=== PATIENT | female | born 2000 | race Caucasian/White ===

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

== ENCOUNTER 2020-07-21 02:46 | Outpatient (CLI) | payer BC, SELFPAY ==
[2020-07-22 12:27] LABS: COVID-19 RT-PCR UVMMC Result Negative (Negative)
== END 2020-07-21 02:47 | disposition home or self-care (01) ==
PROVIDERS: PCP Pediatrics; Visit Provider Pediatrics
DX: Z20.822 Contact with and (suspected) exposure to COVID-19 (principal); R50.9 Fever, unspecified
CPT/HCPCS: U0003

== ENCOUNTER 2020-09-22 22:57 | Emergency (ER) | payer BC, SELFPAY ==
[2020-09-22 23:04] VITALS: BP 134/90; PULSE 104; RESP 14; TEMP 37.2; O2SAT 97
[2020-09-22 23:15] VITALS: RESP 16
--- NOTE | 2020-09-22 23:27 | W.ED.GENAD ---
Discharge Plan Disposition Patient Disposition: HOME Condition: Good Discharge Details Clinical Impression: Encounter for medical assessment, Dehydration, Disturbance of sleep Primary Care Provider: Jan Hua ED Provider: Jan Chapa Discharge Instructions Instructions: Melatonin (By mouth), Dehydration (ED) Additional Instructions: At this time your exam is reassuring and there is no current evidence of an acute life-threatening process. I do suspect that you have mild dehydration, please drink 10 to 12 cups of water per day. Your sleep schedule may be a component of your symptoms, or it may be unrelated. As we discussed together we will provide you with the single tablet of Ativan to use to help sleep when you feel it is most appropriate. Please do not take this with any alcohol. Please take 5 mg of melatonin every night to help modulate your sleep schedule. If you notice any worsening of your symptoms, or any new symptoms such as vomiting, diarrhea, fever, chills, shortness of breath, chest pain, numbness, weakness, or fainting , please return immediately to the emergency department for reevaluation. Please follow up with your primary care provider as soon as possible for reassessment and reevaluation. As always, it was a pleasure participating in your medical care today. Referrals: Jan Hua MD [Primary Care Provider] - Medical Decision Making This is a 20-year-old female with no significant past medical history who presents today for medical evaluation. Patient states that about an hour ago she had an atypical sensation of a popping sensation in her right neck that happen once, shortly thereafter was followed by a feeling of warm flushing, and then about 20 to 30 minutes later mild tingling in the back of her scalp. No syncope. No chest pain or shortness of breath. No pain. No headache or significant vision changes. She denies vomiting or diarrhea. She states that the symptoms of happened before about 2 months ago. She denies any other complaints. No IV or illicit drug use, no alcohol use. She denies any new medications. She does not state any additional complaints. Her father who did bring her in did asked to speak with me personally, we talked on the phone and he adds to the conversation that he feels that the patient sleep schedule has been off and she goes to bed at 3 AM and gets up much later in the day and he feels that this is a large major contributor to her symptoms. No other complaints at this time. Father also felt that a few days of a sleeping aid or a sedative would be helpful for the next 2 to 3 days to help get her back onto a normal routine. Physical exam is notably unremarkable. She has some dry mucous membranes, very mild almost imperceptible left horizontal fatigable nystagmus. No other neurologic deficits, no nerve neuro abnormalities. No evidence of stroke, cerebellar infarct, MS clinically, or other significant abnormality. The initial symptoms that she had are inconsistent with stroke, or significant neurovascular compromise. She had no syncope. Uncertain as to the exact etiology but I suspect mild dehydration certainly component of it. No current evidence of acute life-threatening etiology at this time. I did discuss the patient father's recommendations with the patient herself, she feels that this would be reasonable. We will give a 0.5 mg Ativan for home use x1, as well as recommend continued melatonin use and a good sleep cycle and with hydration in general. Discussed red flags which to return. I have extensively reviewed the treatment plan and discharge instructions with the patient and their family. I have addressed all patient concerns at this time. The patient and family was made aware of what symptoms to monitor for that would warrant a return to the emergency department. Discussed the plan with the patient and family, they demonstrate verbal understanding and agreement with our assessment and plan at this time. The documentation in this chart was dictated using [employer] dictation software. Please excuse any dictation errors. HPI General Date/Time Provider Initiated Documentation: 09/22/20 23:06. HPI Narrative: This is a 20-year-old female with no significant past medical history who presents today for medical evaluation. Patient states that about an hour ago she had an atypical sensation of a popping sensation in her right neck that happen once, shortly thereafter was followed by a feeling of warm flushing, and then about 20 to 30 minutes later mild tingling in the back of her scalp. No syncope. No chest pain or shortness of breath. No pain. No headache or significant vision changes. She denies vomiting or diarrhea. She states that the symptoms of happened before about 2 months ago. She denies any other complaints. No IV or illicit drug use, no alcohol use. She denies any new medications. She does not state any additional complaints. Her father who did bring her in did asked to speak with me personally, we talked on the phone and he adds to the conversation that he feels that the patient sleep schedule has been off and she goes to bed at 3 AM and gets up much later in the day and he feels that this is a large major contributor to her symptoms. No other complaints at this time. Related Data Allergies Allergy/AdvReac Type Severity Reaction Status Date / Time No Known Drug Allergies Allergy Verified 08/07/20 13:50 tree and shrub pollen AdvReac Verified 08/07/20 13:50 General Stated Complaint: GenMedical NAOMI: 3 Review of Systems All systems reviewed & are unremarkable except as noted in HPI and below PFSH Medical History History of varicella as a child Per records- reported as 03/2009 Muscle tightness Short stature Family History Mother Mental disorder DEPRESSION/ANXIETY Father Essential hypertension Diverticulitis Grandparent Alcohol abuse MGF Essential hypertension MGM Alzheimer disease PGF Hyperlipidemia Other Alcohol abuse Maternal uncle Mental disorder Cousin - bipolar Neoplasm Maternal aunt pituitary tumor Brother Autism Mental disorder DEPRESSION/ANXIETY Other Substance abuse Social History Smoking/Tobacco Use Status: Never Smoking risk assessment performed?: Yes Alcohol Intake: current Alcohol Intake frequency: other Substance use type: marijuana Counseling given: Yes Details: smokes pot to help with sleep at night sometimes Education Level: college Sexually active: Yes What type of physical activity do you participate in: walking Do you feel safe at home: Yes Do you feel safe in your relationship?: Yes Female Reproductive History Menstrual Age of Menarche: 10 Duration of menses: other (LMP- 11/03/18) control method: condoms Exam Narrative Exam Narrative: 1.Const: Well-nourished, Well-developed, appearing stated age 2.Eyes: PERRL, no conjunctival injection, and symmetrical lids. 3.ENT: Atraumatic external nose and ears. Notably dry MM. Neck: Symmetric, trachea midline, No thyromegaly. No erythema in the ear canals, no fluid behind the tympanic membranes. Patient demonstrates good movement of cervical neck. There is no nuchal rigidity, no nuchal tenderness. Patient is able to flex the neck without any difficulty or significant pain. Negative Kernig's and Brudzinski sign. 4.CVS: +S1/S2, No murmurs or gallops. Peripheral pulses 2+ and equal in all extremities. Brisk capillary refill in all extremities. No carotid bruits. No vertebral bruits. 5.RESP: Unlabored respiratory effort. Clear to auscultation bilaterally. No wheezes rales or rhonchi 6.GI: Soft, Nontender/Nondistended, No hepatosplenomegaly. No guarding or rebound. 7.MSK: Normocephalic/Atraumatic, Extremities w/o deformity or ttp No cyanosis or clubbing, Normal movement of all extremities 8.Skin: Warm, Dry. No rashes or lesions. 9.Neuro: restaurant mgr II-XII grossly intact. Sensation grossly intact, no focal neurologic deficits. All 6 cardinal planes of vision are fully intact. No evidence of rotatory or vertical nystagmus. Minimal unidirectional left-sided fatigable horizontal nystagmus. The patient demonstrated a normal qmhyrn-bbvc-ylzwhv, good dexterity. There was no evidence of dysdiadochokinesia. Patient was able to ambulate without difficulty. There was no wide-based gait. Romberg testing was normal. Jghl-gi-xngp testing was normal. Sensation was intact bilaterally as well as muscle strength bilaterally for all extremities. Patient was able to verbalize butter cup with no slurring, or miss pronunciation. 10.Psych: (AAO) x3. Appropriate mood and affect Course Vital Signs Vital signs: Vital Signs Temperature 37.2 C 09/22/20 23:04 Pulse 104 H 09/22/20 23:04 Respiratory Rate 14 09/22/20 23:04 Blood Pressure 134/90 09/22/20 23:04 Pulse Oximetry 97 09/22/20 23:04 Temperature 37.2 C 09/22/20 23:04 Temperature Source Skin 09/22/20 23:04 Pulse 104 H 09/22/20 23:04 Respiratory Rate 16 09/22/20 23:15 Respiratory Effort Non-Labored 09/22/20 23:15 Respiratory Depth Normal 09/22/20 23:15 Respiratory Pattern Normal 09/22/20 23:15 Blood Pressure 134/90 09/22/20 23:04 Blood Pressure Position Sitting 09/22/20 23:04 Pulse Oximetry 97 09/22/20 23:04 Oxygen Delivery Method Room Air 09/22/20 23:04 Oxygen Flow Rate 0 09/22/20 23:04 Pain Level 0 09/22/20 23:04
[2020-09-22] MEDS: LORazepam 0.5 MG TAB PO (23:48)
== END 2020-09-22 23:55 | disposition home or self-care (01) ==
PROVIDERS: Emergency Provider Student in an Organized Health Care Education/Training Program; PCP Pediatrics
DX: E86.0 Dehydration (principal); G47.29 Other circadian rhythm sleep disorder
CPT/HCPCS: 99283

== ENCOUNTER 2020-09-25 12:45 | Outpatient (CLI) | payer BC, SELFPAY | END 2020-09-25 12:46 | disposition home or self-care (01) | LOC: LBO 12:45 | PROVIDERS: PCP Pediatrics | DX: F41.9 Anxiety disorder, unspecified (principal) | CPT/HCPCS: 36415; 80053; 82728; 84443; 85025 ==

== ENCOUNTER 2020-11-02 13:18 | Outpatient (REF) | payer BC, SELFPAY ==
--- NOTE | 2020-11-02 11:30 | PAPFT_PTH ---
PATIENT: Staci Denton LOC: [facility] U#:[id number] AGE/SX: 20/F ROOM: RE11/02/[address]: Tiffanie Burns NP : 2000 BED: DIS: 11/02/2020 SPEC #: [id number] RECD: 11/02/20 17:54 STATUS: EDIS REFavian #: [id number] ANSELMO: 11/02/20 11:[address]: Tiffanie Burns NP DEPT: [facility] Cytology RECD BY: Lovely Mena ENTERED: 11/02/20 17:55 SP TYPE: PAPFT OTHR DR: Jan Hua MD Tissues: 1 - CX/ENDOCX FOR PAP SMEARS Procedures: PAP THIN PREP/[facility] Screening Comments: [id number]
== END 2020-11-02 13:19 | disposition home or self-care (01) ==
LOC: LBN 13:18
PROVIDERS: PCP Pediatrics; Visit Provider Nurse Practitioner Women's Health
DX: Z12.4 Encounter for screening for malignant neoplasm of cervix (principal)
CPT/HCPCS: 88142

== ENCOUNTER 2021-12-21 18:42 | Outpatient (REF) | payer BC, SELFPAY ==
[2021-12-23 21:28] LABS: Chlamydia Result Negative (Negative); GC Result Negative (Negative)
== END 2021-12-21 18:43 | disposition home or self-care (01) ==
LOC: LBN 18:42
PROVIDERS: PCP Nurse Practitioner Family; Visit Provider Nurse Practitioner Women's Health
DX: Z11.3 Encounter for screening for infections with a predominantly sexual mode of transmission (principal)
CPT/HCPCS: 87491; 87591

== ENCOUNTER 2021-12-24 01:31 | Outpatient (CLI) | payer BC, SELFPAY ==
--- OUTSIDE RECORDS SUMMARY | 2021-12-24 01:33 | XMS_ITS | Encounter Summary ---
:2000 Author Organization [place] [address] Care Team Providers Name Role Phone Jan Hua MD Primary Care Provider Reason for Visit Reason Onset Date Comments Medication Refill 06/15/2011 Encounter Details Date Type Department Care Team Description 06/15/2011 Refill Pediatric Endocrinology Armaan Hebert , Growth hormone at [facility] MD deficiency (Primary Dx) [facility] [place] [address] PEDIATRIC ENDOCRINOLOGY [place], [place] [address] (Wo rk) Social History Tobacco Use Types Packs/Day Years Used Date Never Smoker Comments: mom smokes outside Alcohol Use Standard Drinks/Week Comments Not Asked 0 (1 standard drink = 0.6 oz pure alcoho l) Sex Assigned at Date Recorded Not on file documented as of this encounter Plan of Treatment Not on filedocumented as of this encounter Visit Diagnoses Diagnosis 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
--- OUTSIDE RECORDS SUMMARY | 2021-12-24 01:33 | XMS_ITS | Encounter Summary ---
:2000 [place] [address] Care Team Providers Name Role Phone Jan Hua MD Primary Care Provider Reason for Visit Reason Comments Growth Hormone Deficiency Encounter Details Date Type Department Care Team Description 08/22/2011 Office Visit Pediatric Endocrinology Daniel Kellogg hormone at [facility] MD Marissa deficiency (Primary [facility] Dx) [facility] [address] PEDIATRIC [phone] ENDOCRINOLOGY [place], [place] [address] Social History Tobacco Use Types Packs/Day Years Used Date Never Smoker Smokeless Tobacco: Never Used Comments: mom smokes outside Alcohol Use Standard Drinks/Week Comments Not Asked 0 (1 standard drink = 0.6 oz pure alcoho l) Sex Assigned at Date Recorded Not on file documented as of this encounter Last Filed Vital Signs Vital Sign Reading Time Taken Comments Blood Pressure 122/58 08/22/2011 11:32 AM EDT Pulse 96 08/22/2011 11:32 AM EDT Temperature - - Respiratory Rate 24 08/22/2011 11:32 AM EDT Oxygen Saturation - - Inhaled Oxygen Concentration - - Weight 49.6 kg (109 lb 6.4 oz) 08/22/2011 11:32 AM EDT Height 156 cm (5' 1.42) 08/22/2011 11:32 AM EDT Body Mass Index 20.39 08/22/2011 11:32 AM EDT Body Mass Index Percentile 76.05 % 08/22/2011 11:32 AM E DT Growth Chart: CDC (Girls, 2-20 Years) documented in this encounter Progress Notes Daniel Kellogg MD - 08/22/2011 6:42 PM EDT Subjective: Patient ID: Staci Denotn is a 11 y.o. female. 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 She was diagnosed at 3 years of age and the family moved to our area in January of 2010. Overall she's done well in the last interval. Her height has increased. The report missing only 2 injections. She is wearing bigger pants but his shoe size has not changed. Her energy level is good. She has no constipation or cold intolerance. Menarche occurred March 28. Mother reports that she is under considerable stress and has arranged for Staci to see a counselorlocally. Staci witnessed a meltdown by her brother and has also had difficulty dealing with parents separation/plans for divorce. She remains very physically active and is involved in a number of sports. Review of Systems Constitutional: Negative. HENT: Negative. Eyes: Negative. Respiratory: Negative. Cardiovascular: Negative. Gastrointestinal: Negative. Genitourinary: Negative. Musculoskeletal: Negative. Skin: Negative. Neurological: Negative. Hematological: Negative. Psychiatric/Behavioral: Negative. Objective: Physical Exam Constitutional: She appears well-developed and well-nourished. No distress. HENT: Mouth/Throat: Oropharynx is clear. Eyes: Conjunctivae are normal. Pupils are equal, round, and reactive to light. Neck: Thyroid normal. No adenopathy. Cardiovascular: Normal rate and regular rhythm. No murmur heard. Pulmonary/Chest: Effort normal and breath sounds normal. Abdominal: Soft. There is no hepatosplenomegaly. No tenderness. Musculoskeletal: Normal range of motion. She exhibits no edema. Neurological: She is alert. Skin: Skin is warm. No rash noted. BP 114/60 Pulse 75 Resp 20 Ht 153.8 cm (5' 0.43) Wt 47.537 kg (104 lb 12.8 oz) BMI 20.18 kg/m2 LMP 04/22/2011 Assessment and Plan: Growth hormone deficiency - DANIEL KELLOGG MD 08/22/11 06:38 PM Signed Staci has gained an additional 2.1 cm over the past 4 months and has now exceeded 5 feet in height. She had menarche last fall and so we expect her growth velocity will soon taper. She is tolerating the therapy well. We will measure IGF-I, glucose, free T4 and her bone age today and will adjust the dose of the growth hormone when results are available. documented in this encounter Miscellaneous Notes Communication Body - Daniel Kellogg MD - 08/22/2011 6:44 PM EDT Subjective: Patient ID: Staci Denton is a 11 y.o. female. 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 She was diagnosed at 3 years of age and the family moved to our area in January of 2010. Overall she's done well in the last interval. Her height has increased. The report missing only 2 injections. She is wearing bigger pants but his shoe size has not changed. Her energy level is good. She has no constipation or cold intolerance. Menarche occurred March 28. Mother reports that she is under considerable stress and has arranged for Staci to see a counselorlocally. Staci witnessed a meltdown by her brother and has also had difficulty dealing with parents separation/plans for divorce. She remains very physically active and is involved in a number of sports. Review of Systems Constitutional: Negative. HENT: Negative. Eyes: Negative. Respiratory: Negative. Cardiovascular: Negative. Gastrointestinal: Negative. Genitourinary: Negative. Musculoskeletal: Negative. Skin: Negative. Neurological: Negative. Hematological: Negative. Psychiatric/Behavioral: Negative. Objective: Physical Exam Constitutional: She appears well-developed and well-nourished. No distress. HENT: Mouth/Throat: Oropharynx is clear. Eyes: Conjunctivae are normal. Pupils are equal, round, and reactive to light. Neck: Thyroid normal. No adenopathy. Cardiovascular: Normal rate and regular rhythm. No murmur heard. Pulmonary/Chest: Effort normal and breath sounds normal. Abdominal: Soft. There is no hepatosplenomegaly. No tenderness. Musculoskeletal: Normal range of motion. She exhibits no edema. Neurological: She is alert. Skin: Skin is warm. No rash noted. BP 114/60 Pulse 75 Resp 20 Ht 153.8 cm (5' 0.43) Wt 47.537 kg (104 lb 12.8 oz) BMI 20.18 kg/m2 LMP 04/22/2011 Assessment and Plan: Growth hormone deficiency - DANIEL KELLOGG MD 08/22/11 06:38 PM Signed Staci has gained an additional 2.1 cm over the past 4 months and has now exceeded 5 feet in height. She had menarche last fall and so we expect her growth velocity will soon taper. She is tolerating the therapy well. We will measure IGF-I, glucose, free T4 and her bone age today and will adjust the dose of the growth hormone when results are available. Assessment & Plan Note - Daniel Kellogg MD - 08/22/2011 6:38 PM EDT Associated Problem(s): Growth hormone deficiency Staci has gained an additional 2.5 cm over the past 4 months and has now exceeded 5'1' feet in height (72nd percentile). She had menarche last fall and so we expect her growth velocity will soon taper. She is tolerating the therapy well. We will measure IGF-I, glucose, free T4 and her bone age todayand will adjust the dose of the growth hormone when results are available. documented in this encounter Plan of Treatment Not on filedocumented as of this encounter Procedures Procedure Name Priority Date/Time Associated Diagnosis Comme nts INSULIN LIKE GF-1 Routine 08/22/2011 12:30 PM Growth hormone R esults for this EDT deficiency procedure are i n the results section. T4, FREE Routine 08/22/2011 12:30 PM Growth hormone Result s for this EDT deficiency procedure are i n the results section. GLUCOSE, RANDOM Routine 08/22/2011 12:30 PM Growth hormone Res ults for this EDT deficiency procedure are i n the results section. documented in this encounter Results T4, free (08/22/2011 12:30 PM EDT) athologist Signature Free T4 0.99 0.90 - 1.60 CERNER ng/dL [facility] Specimen Anatomical Collection Method Collection Time Receive d Time (Source) Location / / Volume Laterality Blood specimen 08/22/2011 12:30 2 (specimen) PM EDT 12:41 PM EDT Resulting Agency Comment Spec In Lab Daniel Kellogg MD CHEMISTRY ORDERABLES Performing Organization Address City/[facility]/[place] [address] CERNER MILLENNIUM (ABNORMAL) [facility] (08/22/2011 12:30 PM EDT) P athologist Signature [facility] 1 595 (H) 132 - 376 CERNER ng/mL MILLENNIUM Comment: Full-term newborns and infants: : ? 15-109 2 Months: ??15-109 4 Months: ?? 7-124 6 Months: ?? 793 12 Months: 15-101 Test performed by [facility] [address] [place] [address], ??[place] [address] Specimen Anatomical Collection Method Collection Time Receive d Time (Source) Location / / Volume Laterality Blood specimen 08/22/2011 12:30 2 2:18 (specimen) PM EDT PM EDT Resulting Agency Comment Spec In Lab Daniel Kellogg MD CHEMISTRY ORDERABLES Performing Organization Address City/[facility]/ZIP Code Phon e Number [address] [facility] Glucose, random (08/22/2011 12:30 PM EDT) P athologist Signature Glucose Lvl 98 60 - 199 CERNER mg/dL MILLENNIUM Comment: Diabetes: >=200 mg/dL plus symp toms Specimen Anatomical Collection Method Collection Time Receive d Time (Source) Location / / Volume Laterality Blood specimen 08/22/2011 12:30 2 (specimen) PM EDT 12:41 PM EDT Resulting Agency Comment Spec In Lab Daniel Kellogg MD CHEMISTRY ORDERABLES Performing Organization Address City/[facility]/[place] [address] CERNER [facility] documented in this encounter Visit Diagnoses Diagnosis 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
--- OUTSIDE RECORDS SUMMARY | 2021-12-24 01:33 | XMS_ITS | Clinical Summary ---
:2000 Author Organization [place] [address] Care Team Providers Name Role Phone Jan Hua MD Primary Care Provider Allergies No known active allergies Medications No known medications Active Problems Problem Noted Date Growth hormone deficiency 06/21/2010 Last Assessment & Plan: Formatting of th is note might be different from the original. Staci has gained only 0.9 cm over the past 4 months and has now exceeded 5'2'. She had menarche last fall and so it is not surprising that her growth velocity has decreased. Given that she has reached a normal adult height, and that the vahid ocity has slowed to only 2.7 cm/yr, I think we should discontinue the growth hormone when her current supply is exhausted. We will check IGF-I, glucose, free T4 t danette, as mother anticipates they have 4 months of growth hormone left. We discussed the recommendation to repeat growth hormone testing after 3 months off therapy, to assess for adult growth hormone deficiency. Family History Medical History Relation Comments Mental Illness Brother ?Fragile X High Blood Pressure Father High Cholesterol Father Heart Disease Maternal Grandfather High Blood Pressure Maternal Grandfather Substance Use Disorder Maternal Grandfather Alcohol High Blood Pressure Maternal Grandmother Depression Mother GERD Mother * Paternal Grandfather Alzheimer Disease Paternal Grandfather Relation Status Comments Brother Alive Father Alive Maternal Grandfather Alive Maternal Grandmother Alive Mother Alive Paternal Grandfather Paternal Grandmother Alive Social History Tobacco Use Types Packs/Day Years Used Date Never Smoker Smokeless Tobacco: Never Used Comments: mom smokes outside Alcohol Use Standard Drinks/Week Comments Not Asked 0 (1 standard drink = 0.6 oz pure alcoho l) Sex Assigned at Date Recorded Not on file Last Filed Vital Signs Vital Sign Reading Time Taken Comments Blood Pressure 118/58 10/03/2013 8:11 AM EDT Pulse 69 10/03/2013 8:11 AM EDT Temperature - - Respiratory Rate 24 08/22/2011 11:32 AM EDT Oxygen Saturation - - Inhaled Oxygen Concentration - - Weight 57 kg (125 lb 9.6 oz) 10/03/2013 8:11 AM EDT Height 161.1 cm (5' 3.43) 10/03/2013 8:11 AM EDT Body Mass Index 21.95 10/03/2013 8:11 AM EDT Plan of Treatment Health Maintenance Due Date Last Done Comments Covid-19 Vaccine (#1) 07/24/2004 HPV vaccine (1 - 2-dose series) 07/24/2010 Chlamydia Screening, female 15-25 07/24/2014 HIV screen 07/24/2017 Hepatitis C Screening 07/24/2017 Tdap adult 07/24/2018 Tetanus vaccine 07/24/2018 PAP Smear 07/24/2020 Influenza (Flu) vaccine (1 of 1 - Influenza standard 01/20/2022 series) Care Teams Manufacturing Leader Relationship Specialty Start Date End Date Jan Hua MD PCP - General 04/13/10 [address] [place] [address]
--- OUTSIDE RECORDS SUMMARY | 2021-12-24 01:33 | XMS_ITS | Encounter Summary ---
:2000 Author Organization [facility] Address [address] [place] [address] Care Team Providers Name Role Phone Unknown, Provider Primary Care Provider Encounter Details Date Type Department Care Team Description 07/21/2020 Lab Requisition [facility] Outr Resulting Lab, Pathology & Laboratory Provider [facility] [address] [place] [address] Social History Tobacco Use Types Packs/Day Years Used Date Never Assessed Sex Assigned at Date Recorded Not on file documented as of this encounter Plan of Treatment Not on filedocumented as of this encounter Procedures Procedure Name Priority Date/Time Associated Diagnosis Comme nts [facility] Today 07/21/2020 10:32 LAB PCR EST COVID-19 TESTING Routine 07/21/2020 10:32 Results for this EST procedure are i n the results section. documented in this encounter Results COVID-19 TEST [facility] PCR (07/21/2020 10:32 EST) Specimen Swab - Entire nasopharynx (body structur e) Performing Organization Address City/State/ZIP Code Phon e Number [facility] [address] [place] [address] SERVICES COVID-19 TESTING (07/21/2020 10:32 EST) COVID-19 rt-PCR Negative Negative [facility] Result Comment: [facility] This test has not been FDA c leared or approved. This test has been authorized by FDA under an EUA for use by authorized laboratories. This test has been authorized only for detection of nucleic acid fro SERVICES m 2018-nCoV, not for any oth er viruses or pathogens. This test is only authorized for the duration of the declaration that circumstances exist justifying the authorization of emergency use of in vitro d iagnostic tests for detectio n and/or diagnosis of 2019-nCoV under section 564(b)(1) of Act, 21 U.S.C ?? 360bbb-3(b) (1), unless the authorization is terminated or revoked sooner. Negative results do not prec lude 2019-nCoV infection and should not be used as the sole basis for treatment or other patient management decisions. Negative results must be combined with clinical observa tions, patient history, and epidemiological informatio n. This test was developed and its performance characteristics determined by [facility]. It has not been cleared or approved by the US Food and Drug Administration. FDA does not require this test to go through premarket FDA review. This t est is used for clinical purposes. It should not be regarded as investigational or for research. This laboratory is certified under the Clinical Laboratory Improvement Amendm ents (CLIA) as qualified to perform high complexity clinical laboratory testing. This test is based on the CD C COVID-19 Emergency Use Authorization (EUA) assay, with minor modification as defined by the FDA Performed on the CVRx 7 Pro RT-PCR System. Performing Lab [facility] Lab [facility] SERVICES Specimen Swab Performing Organization Address City/State/ZIP Code Phon e Number [facility] [address] [place] [address] SERVICES documented in this encounter Visit Diagnoses Not on filedocumented in this encounter Care Teams Field Seismologist Relationship Specialty Start Date End Date Unknown, Provider, PCP - General 01/09/16 documented as of this encounter
--- OUTSIDE RECORDS SUMMARY | 2021-12-24 01:33 | XMS_ITS | Encounter Summary ---
:2000 [place] [address] Care Team Providers Name Role Phone Jan Hua MD Primary Care Provider Reason for Visit Reason Comments Growth Hormone Deficiency Encounter Details Date Type Department Care Team Description 12/23/2011 Office Visit Pediatric Endocrinology Daniel Kellogg hormone at [facility] [place] Marissa deficiency (Primary [facility] Dx) [facility] [place] [address] PEDIATRIC [phone] ENDOCRINOLOGY [place], [place] [address] Social History Tobacco Use Types Packs/Day Years Used Date Never Smoker Smokeless Tobacco: Never Used Comments: mom smokes outside Alcohol Use Standard Drinks/Week Comments Not Asked 0 (1 standard drink = 0.6 oz pure alcoho l) Sex Assigned at Date Recorded Not on file documented as of this encounter Last Filed Vital Signs Vital Sign Reading Time Taken Comments Blood Pressure 110/61 12/23/2011 11:00 AM EDT Pulse 69 12/23/2011 11:00 AM EDT Temperature - - Respiratory Rate - - Oxygen Saturation - - Inhaled Oxygen Concentration - - Weight 50.5 kg (111 lb 6.4 oz) 12/23/2011 11:00 AM EDT Height 157.3 cm (5' 1.93) 12/23/2011 11:00 AM EDT Body Mass Index 20.42 12/23/2011 11:00 AM EDT Body Mass Index Percentile 74.17 % 12/23/2011 11:00 AM E DT Growth Chart: CDC (Girls, 2-20 Years) documented in this encounter Progress Notes Daniel Kellogg MD - 12/25/2011 11:28 AM EDT Subjective: Patient ID: Staci Denton is a 11 y.o. female. SAMARA Small is here with her mother for followup of isolated growth hormone deficiency. She was diagnosed at 3 years of age and the family moved to our area in January of 2010. Overall she's done well in the last interval. Her height has increased. The report missing [place] of [place] She has switched from Genotropin to Norditropin. Her shoe size has not changed. Her energy level is good. She has no constipation or cold intolerance. Menarche occurred March 28. She had a frightening episode on October 22, in which she momentarily lost vision in both eyes. She did not feel faint, but she believes she had a low grade fever. She called for her mother, who escortedher from the bathroom and the vision returned within moments. She has not had any subsequent vision changes. She remains very physically active and is involved in a number of sports. She will enter 7th grade this fall. Review of Systems Constitutional: Negative. HENT: Negative. [...] Growth hormone deficiency - DANIEL KELLOGG MD 12/25/11 11:20 AM Signed Staci has gained an additional 1.3 cm over the past 4 months and has now reached 5'2'. She had menarche last fall and so it is not surprising that her growth velocity has decreased. She is toleratingthe therapy well, and hopes that she will reach her full height potential. We increased the growth hormone to 2.0 mg daily. She will be due for IGF-I, glucose, free T4 at her next visit. The fleeting loss of vision, bilaterally, makes me wonder about amarosis fugax. Her optic discs lookfine, and I reassured mother that it is unlikely that a neurologic insult would affect both occipital lobes in a manner that would produce bilateral loss of vision. documented in this encounter Miscellaneous Notes Communication Body - Daniel Kellogg MD - 12/25/2011 11:28 AM EDT Subjective: Patient ID: Staci Denton is a 11 y.o. female. 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 She was diagnosed at 3 years of age and the family moved to our area in January of 2010. Overall she's done well in the last interval. Her height has increased. The report missing [place] of [place] She has switched from Genotropin to Norditropin. Her shoe size has not changed. Her energy level is good. She has no constipation or cold intolerance. Menarche occurred March 28. She had a frightening episode on October 22, in which she momentarily lost vision in both eyes. She did not feel faint, but she believes she had a low grade fever. She called for her mother, who escortedher from the bathroom and the vision returned within moments. She has not had any subsequent vision changes. She remains very physically active and is involved in a number of sports. She will enter 7th grade this fall. Review of Systems Constitutional: Negative. HENT: Negative. [...] Growth hormone deficiency - DANIEL KELLOGG MD 12/25/11 11:20 AM Signed Staci has gained an additional 1.3 cm over the past 4 months and has now reached 5'2'. She had menarche last fall and so it is not surprising that her growth velocity has decreased. She is toleratingthe therapy well, and hopes that she will reach her full height potential. We increased the growth hormone to 2.0 mg daily. She will be due for IGF-I, glucose, free T4 at her next visit. The fleeting loss of vision, bilaterally, makes me wonder about amarosis fugax. Her optic discs lookfine, and I reassured mother that it is unlikely that a neurologic insult would affect both occipital lobes in a manner that would produce bilateral loss of vision. Assessment & Plan Note - Daniel Kellogg MD - 12/25/2011 11:20 AM EDT Associated Problem(s): Growth hormone deficiency Staci has gained an additional 1.3 cm over the past 4 months and has now reached 5'2'. She had menarche last fall and so it is not surprising that her growth velocity has decreased. She is toleratingthe therapy well, and hopes that she will reach her full height potential. We increased the growth hormone to 2.0 mg daily. She will be due for IGF-I, glucose, free T4 at her next visit. 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
--- OUTSIDE RECORDS SUMMARY | 2021-12-24 01:33 | XMS_ITS | Clinical Summary ---
:2000 Author Organization [facility] Address [address] [place] [address] Care Team Providers Name Role Phone Unknown, Provider Primary Care Provider Encounters Date Type Specialty Care Team Description 12/21/2021 Lab Requisition Clinical Laboratory Outr Resulting Lab , Provider from Last 3 Months Social History Tobacco Use Types Packs/Day Years Used Date Never Assessed Sex Assigned at Date Recorded Not on file Plan of Treatment Health Maintenance Due Date Last Done Comments Hepatitis C Screen 2000 COVID-19 Vaccine (#1) 01/25/2000 Procedures Procedure Name Priority Date/Time Associated Comments Diagnosis CHLAMYDIA/N. Routine 12/21/2021 14:15 Results for this GONORRHOEAE AMPLIFIED EDT proced ure are in RNA the results section. from Last 3 Months Results CHLAMYDIA/N. GONORRHOEAE AMPLIFIED RNA (12/21/2021 14:15 EDT) Pathologist Sig nature Gonococcus Result Negative Negative [facility] Chlamydia Result Negative Negative [facility] Specimen Swab - Entire wall of cervix (body struc ture) Performing Organization Address City/State/ZIP Code Phon e Number [facility] [address] [place] [address] SERVICES from Last 3 Months Care Teams Card Punching Machine Operator Relationship Specialty Start Date End Date Unknown, Provider, PCP - General 01/09/16
--- OUTSIDE RECORDS SUMMARY | 2021-12-24 01:33 | XMS_ITS | Encounter Summary ---
:2000 Author Organization [place] [address] Care Team Providers Name Role Phone Jan Hua MD Primary Care Provider Encounter Details Date Type Department Care Team Description 04/18/2012 Telephone Pediatric Endocrinology at Julianna Duque [facility], [place] [address] Social History Tobacco Use Types Packs/Day Years Used Date Never Smoker Smokeless Tobacco: Never Used Comments: mom smokes outside Alcohol Use Standard Drinks/Week Comments Not Asked 0 (1 standard drink = 0.6 oz pure alcoho l) Sex Assigned at Date Recorded Not on file documented as of this encounter Miscellaneous Notes Telephone Encounter - Julianna Duque RN - 04/18/2012 2:42 PM EST Prior Auth granted by [facility] for Norditropin 04/18/12-04/18/13 documented in this encounter Plan of Treatment Not on filedocumented as of this encounter Visit Diagnoses Not on filedocumented in this encounter Care Teams Organ Assembler Relationship Specialty Start Date End Date Jan Hua MD PCP - General 04/13/10 [place] [address] documented as of this encounter
--- OUTSIDE RECORDS SUMMARY | 2021-12-24 01:33 | XMS_ITS | Encounter Summary ---
:2000 Author Organization [facility] Address [address] [place] [address] Care Team Providers Name Role Phone Unknown, Provider Primary Care Provider Encounter Details Date Type Department Care Team Description 12/21/2021 Lab Requisition [facility] Outr Resulting Lab, Pathology & Laboratory Provider [facility] [address] [place] [address] Social History Tobacco Use Types Packs/Day Years Used Date Never Assessed Sex Assigned at Date Recorded Not on file documented as of this encounter Plan of Treatment Not on filedocumented as of this encounter Procedures Procedure Name Priority Date/Time Associated Comments Diagnosis CHLAMYDIA/N. Routine 12/21/2021 14:15 Results for this GONORRHOEAE AMPLIFIED EDT proced ure are in RNA the results section. documented in this encounter Results CHLAMYDIA/N. GONORRHOEAE AMPLIFIED RNA (12/21/2021 14:15 EDT) Pathologist Sig nature Gonococcus Result Negative Negative [facility] Chlamydia Result Negative Negative [facility] Specimen Swab - Entire wall of cervix (body struc ture) Performing Organization Address City/State/ZIP Code Phon e Number [facility] [address] [place] [address] SERVICES documented in this encounter Visit Diagnoses Not on filedocumented in this encounter Care Teams Submarine Operator Relationship Specialty Start Date End Date Unknown, Provider, PCP - General 01/09/16 documented as of this encounter
--- OUTSIDE RECORDS SUMMARY | 2021-12-24 01:33 | XMS_ITS | Encounter Summary ---
:2000 Author Organization [facility] Address [address] [place] [address] Care Team Providers Name Role Phone Unknown, Provider Primary Care Provider Encounter Details Date Type Department Care Team Description 11/03/2020 Lab Requisition [facility] Tiffanie Burns En counter for other Pathology & A, BRUSH MAKER general examination Laboratory Medicine [address], [place] [address] [facility] [address] [place] [address] Social History Tobacco Use Types Packs/Day Years Used Date Never Assessed Sex Assigned at Date Recorded Not on file documented as of this encounter Plan of Treatment Not on filedocumented as of this encounter Procedures Procedure Name Priority Date/Time Associated Diagnosis Comme nts PAP TEST Today 11/02/2020 11:30 EDT Encounter for other Results for this general examination procedur e are in the results section. documented in this encounter Results PAP TEST (11/02/2020 11:30 EDT) Specimens A. Cervix and/or [facility] MEDICAL Endocervix , ThinPrep CENTER Imaging System with LABORATORY Manual Evaluation SERVICES Specimen Adequacy Satisfactory for [facility] MEDICAL Evaluation - CENTER transformation zone LABORATORY component present SERVICES General Negative for [facility] intraepithelial [place] lesion or malignancy LABORATORY SERVICES Attestation . [facility] MEDICAL Electronically CENTER signed by DIANA Woods CT(ASCP) o n SERVICES 11/11/2020 at 10 35 Clinical History See below [facility] SERVICES Performing Lab [facility] SERVICES Scanned Images [facility]ORY SERVICES Specimen Pap Test - Cervix and/or Endocervix Performing Organization Address City/State/ZIP Code Phon e Number [facility] [address] [place] [address] SERVICES documented in this encounter Visit Diagnoses Diagnosis Encounter for other general examination documented in this encounter Care Teams Resolution Agent Relationship Specialty Start Date End Date Unknown, Provider, PCP - General 01/09/16 documented as of this encounter
--- OUTSIDE RECORDS SUMMARY | 2021-12-24 01:33 | XMS_ITS | Encounter Summary ---
:2000 Author Organization [facility] [place] [address] Care Team Providers Name Role Phone Jan Hua MD Primary Care Provider Encounter Details Date Type Department Care Team Description 08/22/2011 Hospital Encounter XRay at [facility], [facility] Growth hormone [address] [place] [address] Armaan Garcia MD [facility] [address] [place] [address] Social History Tobacco Use Types Packs/Day Years Used Date Never Smoker Smokeless Tobacco: Never Used Comments: mom smokes outside Alcohol Use Standard Drinks/Week Comments Not Asked 0 (1 standard drink = 0.6 oz pure alcoho l) Sex Assigned at Date Recorded Not on file documented as of this encounter Medications at Time of Discharge Medication Sig Dispensed Refills Start Date End Date Somatropin Inject 1.6 mg 3 each 5 06/15/2011 12/23/2011 (NORDITROPIN FLEXPRO) subcutaneously nightly. 15 mg/1.5 mL (10 mg/mL) PnIjIndications: Growth hormone deficiency CIS Free Text Med - 0 06/21/201010/03 Gummy-Vitamins documented as of this encounter Progress Notes Armaan Hebert MD - 09/16/2011 4:23 PM EDT Quick Note: I reviewed the radiograph which was reported as a bone age of 14 years. My interpretation is a boneage of 12 years, yielding a height prediction of 64 inches. documented in this encounter Plan of Treatment Not on filedocumented as of this encounter Procedures Procedure Name Priority Date/Time Associated Diagnosis Comme nts XR BONE AGE Routine 08/22/2011 12:26 PM Pituitary dwarfism Re sults for this EDT procedure are i n the results section . documented in this encounter Results XR BONE AGE (08/22/2011 12:26 PM EDT) Anatomical Region Laterality Modality N/A Radiographic Imaging Specimen (Source) Anatomical Collection Method Collection Time Re ceived Time Location / / Volume Laterality 08/22/2011 12:26 PM EDT Narrative 08/24/2011 1:19 PM EDT LEFT HAND AND WRIST FOR BONE AGE: CLINICAL INDICATION: ??11-year-old femal e with growth hormone deficiency. ?? Please estimate skeletal age. ?? COMPARISON STUDY: ??02/15/10. FINDINGS: ??The patient's chronologic ag e is 11 years. The bone age based on the atlas of Greulich and Frandy, second editi on, most closely approximates 15 years. ?? Standard deviation for a patient of this age is approximately ten months. Procedure Note Crystal Tomlinson MD - 08/24/2011Forma tting of this note might be different from the original. LEFT HAND AND WRIST FOR BONE AGE: CLINICAL INDICATION: 11-year-old female with growth hormone deficiency. Please estimate skeletal age. COMPARISON STUDY: 02/15/10. FINDINGS: The patient's chronologic age is 11 years. The bone age based on the atlas of Greulich and Frandy, second editi on, most closely approximates 15 years. Standard deviation for a patient of this age is approximately ten months. 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
--- OUTSIDE RECORDS SUMMARY | 2021-12-24 01:33 | XMS_ITS | Encounter Summary ---
:2000 Author Organization [facility] [address] Care Team Providers Name Role Phone Jan Hua MD Primary Care Provider Encounter Details Date Type Department Care Team Description 06/21/2010 Office Visit Pediatric Endocrinology at [facility] marie, Armaan Ann MD [facility] [place] [address] ENDOCRINOLOGY [phone] [place], [place] [address] (Wo rk) Social History Tobacco Use Types Packs/Day Years Used Date Never Assessed Sex Assigned at Date Recorded Not on file documented as of this encounter Plan of Treatment Not on filedocumented as of this encounter Visit Diagnoses Not on filedocumented in this encounter Care Teams Nuclear Worker Technician Relationship Specialty Start Date End Date Jan Hua MD PCP - General 04/13/10 [facility] [place] [address] documented as of this encounter
--- OUTSIDE RECORDS SUMMARY | 2021-12-24 01:33 | XMS_ITS | Encounter Summary ---
:2000 Author Organization [facility] [place] [address] Care Team Providers Name Role Phone Jan Hua MD Primary Care Provider Reason for Visit Reason Comments Procedure Encounter Details Date Type Department Care Team Description 10/03/2013 Procedure visit Pediatric Lucie Paulino Short statu re Endocrinology at [facility] POST ANESTHESIA ROOM NURSE (Primary Dx) Formerly [facility], later [facility] [address] [place] [address] PEDIATRIC [phone] [place] [address] Social History Tobacco Use Types Packs/Day Years [...] Mass Index 21.95 10/03/2013 8:11 AM EDT Body Mass Index Percentile 76.20 % 10/03/2013 8:11 AM ED T Growth Chart: CDC (Girls, 2-20 Years) documented in this encounter Patient Instructions Patient Bharti Higgins RN - 10/03/2013 8:21 AM EDT Hormone Testing Patient Instructions 1. Follow-up with your area manager to discuss results from today's testing 2. Resume normal activity after testing documented in this encounter Progress Notes Lucie Paulino APRN - 10/08/2013 12:54 PM EDT Quick Note: Provocative testing rules out adult growth hormone deficiency. Normal cortisol response. Bharti Marr RN - 10/03/2013 8:21 AM EDT Endocrinology Testing Procedure Note - ITT & Arginine Test HPI: Staci Denton is a 13 y.o. 2 m.o. year old female is followed here for short stature. Here for provocative testing to rule out growth hormone deficiency. Weight: 56.972 kg (125 lb 9.6 oz) (74.30%) NPO: Last ate at 8pm last night. Testing explained to patient and dad. 0830 IV access obtained in left antecubital vein (24 gauge) by DENISE Sullivan. 0830 (-20 minutes) Baseline blood glucose level obtained via glucometer BG=85. Two (5cc) syringes filled with patients blood obtained from hep cap for lab testing for glucose, growth hormone, & plasma cortisol. Hep lock flushed with 5cc normalsaline. Labeled -20 minutes. 0830 7 units of regular Insulin given IVP, then hep lock flushed with 5cc normal saline. 0850(0 mins) Blood glucose level obtained via glucometer BG=28. Two (5cc) syringes filled with patients blood obtained from hep cap for lab testing for glucose, growth hormone, & plasma cortisol. Hep lock flushed with 5cc normal saline. Tubes labeled 0 minutes. 0920 (30 minutes after low blood glucose) Blood glucose level obtained via glucometer BG=44. Two (5cc) syringes filled with patients blood obtained from hep cap for lab testing for glucose,growth hormone & plasma cortisol. Hep lock flushed with 5cc normal saline. Tubes labeled 30 minutes after low blood glucose. 0920 R-Gene drip started. 28.45gm/285ml of R-Gene given IV, per protocol 0.5gm/kg. Discarded 15mls. 0955 R-Gene infusion completed. 0955(0 minutes after Arginine infused) Blood glucose level obtained via glucometer, BG= 78 .One (5cc) syringe filled with patients blood obtained from hep cap for lab testing for growth hormone& plasma cortisol. Hep lock flushed with 5cc normal saline. Tube labeled 0 min after Arginine infused. 1025 (30 minutes after Arginine infused) One (5cc) syringe filled with patients blood obtained from hep cap for lab testing for growth hormone. Hep lock flushed with 5cc normal saline. Tube labeled 30 minutes after Arginine infused. 1055 (60 minutes after Arginine infused) One (5cc) syringe filled with patients blood obtained from hep cap for lab testing for growth hormone. Tube labeled 60 minutes after Arginine infused. Hep lock discontinued and pressure dressing applied. Family instructed to call with any signs of infection - redness, swelling, pain, or fever. Patient left in stable condition accompanied by family. Total time spent reviewing test and procedure took less than 10 minutes. All specimens of blood and lab slips sent to lab. Addendum: I, Lucie Paulino APRN, was personally present during the episode of hypoglycemia. Patient tolerated this and remainder of testing without any adverse events. documented in this encounter Plan of Treatment Not on filedocumented as of this encounter Procedures Procedure Name Priority Date/Time Associated Comments Diagnosis GROWTH HORMONE Routine 10/03/2013 10:55 Short stature Results for this AM EDT procedure are i n the results section. GROWTH HORMONE Routine 10/03/2013 10:25 Short stature Results for this AM EDT procedure are i n the results section. GROWTH HORMONE Routine 10/03/2013 9:55 AM Short stature Result s for this EDT procedure are i n the results section. POCT FINGERSTICK STAT 10/03/2013 9:55 AM Short stature Resu lts for this GLUCOSE EDT procedure are i n the results section. CORTISOL Routine 10/03/2013 9:55 AM Short stature Results for this EDT procedure are i n the results section. GROWTH HORMONE Routine 10/03/2013 9:20 AM Short stature Result s for this EDT procedure are i n the results section. POCT FINGERSTICK Routine 10/03/2013 9:20 AM Short stature Resu lts for this GLUCOSE EDT procedure are i n the results section. GLUCOSE, RANDOM Routine 10/03/2013 9:20 AM Short stature Resul ts for this EDT procedure are i n the results section. CORTISOL Routine 10/03/2013 9:20 AM Short stature Results for this EDT procedure are i n the results section. GROWTH HORMONE Routine 10/03/2013 8:50 AM Short stature Result s for this EDT procedure are i n the results section. POCT FINGERSTICK Routine 10/03/2013 8:50 AM Short stature Resu lts for this GLUCOSE EDT procedure are i n the results section. GLUCOSE, RANDOM Routine 10/03/2013 8:50 AM Short stature Resul ts for this EDT procedure are i n the results section. CORTISOL Routine 10/03/2013 8:50 AM Short stature Results for this EDT procedure are i n the results section. GROWTH HORMONE Routine 10/03/2013 8:30 AM Short stature Result s for this EDT procedure are i n the results section. POCT FINGERSTICK Routine 10/03/2013 8:30 AM Short stature Resu lts for this GLUCOSE EDT procedure are i n the results section. GLUCOSE, RANDOM Routine 10/03/2013 8:30 AM Short stature Resul ts for this EDT procedure are i n the results section. CORTISOL Routine 10/03/2013 8:30 AM Short stature Results for this EDT procedure are i n the results section. documented in this encounter Results Growth hormone (10/03/2013 10:55 AM EDT) athologist Signature Growth Hormone 15.0 ng/mL [facility] Comment: Expected results (Basal/Unstimulated): < 10 ng/mL (all ages) GH concentration in response to stimulat ion should rise by: ??>10 ng/mL (Insulin) ??>7.5 ng/mL (Arginine) GH secretion is episodic and pulsatile; transient levels up to 40 ng/mL have been observed in healthy individuals. References: Stimulation test information from: Lynne reinoso CA, Faina ER, Zohra DE, eds. Lisha Textbook of Clinical Chemistry and Molec ular Diagnostics. 4th ed. [place]:Gloria Silva,2006:2272. Basal/Unstimulated Reference Interval fr om: IDS-iSYS Human Growth Hormone (hGH)[id number], 2011-04-20 Growth H. Time 60 min. post arginine/clonidine CERNER MILLENNIUM Specimen Anatomical Collection Method Collection Time Receive d Time (Source) Location / / Volume Laterality Blood specimen 10/03/2013 10:55 4 (specimen) AM EDT 10:56 AM EDT Resulting Agency Comment Spec In Lab Armaan Hebert MD CHEMISTRY ORDERABLES Performing Organization Address [facility] e Number [address] CERNER MILLENNIUM Growth hormone (10/03/2013 10:25 AM EDT) P athologist Signature Growth Hormone 14.6 ng/mL CERN[facility] Comment: Expected results (Basal/Unstimulated): < 10 ng/mL (all ages) GH concentration in response to stimulat ion should rise by: ??>10 ng/mL (Insulin) ??>7.5 ng/mL (Arginine) GH secretion is episodic and pulsatile; transient levels up to 40 ng/mL have been observed in healthy individuals. References: Stimulation test information from: Lynne MCKENZIE, Faina RAMOS, Zohra DE, eds. Lisha Textbook of Clinical Chemistry and Molec ular Diagnostics. 4th ed. [place]:Gloria Silva,2006:2272. Basal/Unstimulated Reference Interval fr om: IDS-iSYS Human Growth Hormone (hGH)[id number], 2011-04-20 Growth H. Time 30 min. post arginine/clonidine CERNER MILLENNIUM Specimen Anatomical Collection Method Collection Time Receive d Time (Source) Location / / Volume Laterality Blood specimen 10/03/2013 10:25 4 (specimen) AM EDT 10:33 AM EDT Resulting Agency Comment Spec In Lab Armaan Hebert MD CHEMISTRY ORDERABLES Performing Organization Address [facility] Phon e Number [address] CERNER [facility] POCT Fingerstick Glucose (10/03/2013 9:55 AM EDT) athologist Signature POC Glucose 78 60 - 199 mg/dl Specimen (Source) Anatomical Collection Method Collection Time Re ceived Time Location / / Volume Laterality 10/03/2013 9:55 AM EDT Armaan Hebert MD POINT OF CARE TEST ORDERABLE S Growth hormone (10/03/2013 9:55 AM EDT) athologist Signature Growth Hormone 15.1 ng/mL [facility] Comment: Expected results (Basal/Unstimulated): < 10 ng/mL (all ages) GH concentration in response to stimulat ion should rise by: ??>10 ng/mL (Insulin) ??>7.5 ng/mL (Arginine) GH secretion is episodic and pulsatile; transient levels up to 40 ng/mL have been observed in healthy individuals. References: Stimulation test information from: Lynne MCKENZIE, Faina RAMOS, Zohra DE, eds. Lisha Textbook of Clinical Chemistry and Molec ulnj Diagnostics. 4th ed. [place]:Gloria Sliva,2006:2272. Basal/Unstimulated Reference Interval fr om: IDS-iSYS Human Growth Hormone (hGH)[id number], 2011-04-20 Growth H. Time 0 min. post arginine/clonidine CERNER MILLENNIUM Specimen Anatomical Collection Method Collection Time Receive d Time (Source) Location / / Volume Laterality Blood specimen 10/03/2013 9:55 AM 014 (specimen) EDT 10:19 AM EDT Resulting Agency Comment Spec In Lab Armaan Hebert MD CHEMISTRY ORDERABLES Performing Organization Address City/State/[place] [address] CERNER MILLENNIUM Cortisol (10/03/2013 9:55 AM EDT) athologist Signature Cortisol 24.7 mcg/dL CERNER MILLENNIUM Comment: Reference ranges: ??AM (7-10am): ??6.2-19.4 mcg/dL ??PM (4-8pm): ??2.3-12.3 mcg/dL Specimen Anatomical Collection Method Collection Time Receive d Time (Source) Location / / Volume Laterality Blood specimen 10/03/2013 9:55 AM 014 (specimen) EDT 10:19 AM EDT Resulting Agency Comment Spec In Lab Armaan Hebert MD CHEMISTRY ORDERABLES Performing Organization Address City/[facility]/[place] [address] CERNER MILLENNIUM (ABNORMAL) POCT Fingerstick Glucose (10/03/2013 9:20 AM EDT) athologist Signature POC Glucose 44 (A) 60 - 199 mg/dl Specimen (Source) Anatomical Collection Method Collection Time Re ceived Time Location / / Volume Laterality 10/03/2013 9:20 AM EDT Armaan Hebert MD POINT OF CARE TEST ORDERABLE S (ABNORMAL) Glucose, random (10/03/2013 9:20 AM EDT) athologist Signature Glucose Lvl 41 (L) 60 - 199 [facility] mg/dL [facility] Comment: Diabetes: >=200 mg/dL plus symp toms Specimen Anatomical Collection Method Collection Time Receive d Time (Source) Location / / Volume Laterality Blood specimen 10/03/2013 9:20 AM 014 9:38 (specimen) EDT AM EDT Resulting Agency Comment Spec In Lab Armaan Hebert MD CHEMISTRY ORDERABLES Performing Organization Address City/[facility] [place] [address] CERNER MILLENNIUM Growth hormone (10/03/2013 9:20 AM EDT) athologist Signature Growth Hormone 6.9 ng/mL [facility] Comment: Expected results (Basal/Unstimulated): < 10 ng/mL (all ages) GH concentration in response to stimulat ion should rise by: ??>10 ng/mL (Insulin) ??>7.5 ng/mL (Arginine) GH secretion is episodic and pulsatile; transient levels up to 40 ng/mL have been observed in healthy individuals. References: Stimulation test information from: Lynne MCKENZIE, Faina RAMOS, Zohra DE, eds. Lisha Textbook of Clinical Chemistry and Molec [facility] Diagnostics. 4th ed. [place]:Gloria Silva,2006:2272. Basal/Unstimulated Reference Interval fr om: IDS-iSYS Human Growth Hormone (hGH)[id number], 2011-04-20 Growth H. Time 30 min. post low glucose CERNER MILLENNIUM Specimen Anatomical Collection Method Collection Time Receive d Time (Source) Location / / Volume Laterality Blood specimen 10/03/2013 9:20 AM 014 9:38 (specimen) EDT AM EDT Resulting Agency Comment Spec In Lab Armaan Hebert MD CHEMISTRY ORDERABLES Performing Organization Address City/[facility]/ZIP [facility] Phon e Number [address] [facility] Cortisol (10/03/2013 9:20 AM EDT) P athologist Signature Cortisol 21.6 mcg/dL [facility] Comment: Reference ranges: ??AM (7-10am): ??6.2-19.4 mcg/dL ??PM (4-8pm): ??2.3-12.3 mcg/dL Specimen Anatomical Collection Method Collection Time Receive d Time (Source) Location / / Volume Laterality Blood specimen 10/03/2013 9:20 AM 014 9:38 (specimen) EDT AM EDT Resulting Agency Comment Spec In Lab Armaan Hebert MD CHEMISTRY ORDERABLES Performing Organization Address [facility] Phon e Number [address] CERNER NANCYENNIUM (ABNORMAL) POCT Fingerstick Glucose (10/03/2013 8:50 AM EDT) P athologist Signature POC Glucose 28 60 - 199 (Critical) mg/dl Comment: Growth hormone stim test Specimen (Source) Anatomical Collection Method Collection Time Re ceived Time Location / / Volume Laterality 10/03/2013 8:50 AM EDT Armaan Hebert MD POINT OF CARE TEST ORDERABLE S (ABNORMAL) Glucose, random (10/03/2013 8:50 AM EDT) P athologist Signature Glucose Lvl 24 60 - 199 CERNER (Critical) mg/dL [facility] Comment: Result rechecked. Called by: fabian, Read back by: Lucie Paulino , Date/Time:10/03/13 10:28. Diabetes: >=200 mg/dL plus symptoms Specimen Anatomical Collection Method Collection Time Receive d Time (Source) Location / / Volume Laterality Blood specimen 10/03/2013 8:50 AM 014 9:03 (specimen) EDT AM EDT Resulting Agency Comment Spec In Lab Armaan Hebert MD CHEMISTRY ORDERABLES Performing Organization Address City/[facility] Phon e Number [address] CERNER MILLENNIUM Growth hormone (10/03/2013 8:50 AM EDT) athologist Signature Growth Hormone 0.3 ng/mL CERNER [facility] Comment: Expected results (Basal/Unstimulated): < 10 ng/mL (all ages) GH concentration in response to stimulat ion should rise by: ??>10 ng/mL (Insulin) ??>7.5 ng/mL (Arginine) GH secretion is episodic and pulsatile; transient levels up to 40 ng/mL have been observed in healthy individuals. References: Stimulation test information from: Lynne reinoso CA, Faina RAMOS, Zohra PERSON, eds. Lisha Textbook of Clinical Chemistry and Molec ular Diagnostics. 4th ed. [place]:Gloria Silva,2006:2272. Basal/Unstimulated Reference Interval fr om: IDS-iSYS Human Growth Hormone (hGH)[id number], 2011-04-20 Growth H. Time 0 min. CERNER MILLENNI UM Specimen Anatomical Collection Method Collection Time Receive d Time (Source) Location / / Volume Laterality Blood specimen 10/03/2013 8:50 AM 014 9:03 (specimen) EDT AM EDT Resulting Agency Comment Spec In Lab Armaan Hebert MD CHEMISTRY ORDERABLES Performing Organization Address City/[facility] e Number [address] C[facility]ER [facility] Cortisol (10/03/2013 8:50 AM EDT) athologist Signature Cortisol 4.8 mcg/dL [facility] Comment: Reference ranges: ??AM (7-10am): ??6.2-19.4 mcg/dL ??PM (4-8pm): ??2.3-12.3 mcg/dL Specimen Anatomical Collection Method Collection Time Receive d Time (Source) Location / / Volume Laterality Blood specimen 10/03/2013 8:50 AM 014 9:03 (specimen) EDT AM EDT Resulting Agency Comment Spec In Lab Armaan Hebert MD CHEMISTRY ORDERABLES Performing Organization Address City/[facility]/ZIP [facility] [place] [address] [facility] POCT Fingerstick Glucose (10/03/2013 8:30 AM EDT) athologist Signature POC Glucose 85 60 - 199 mg/dl Specimen (Source) Anatomical Collection Method Collection Time Re ceived Time Location / / Volume Laterality 10/03/2013 8:30 AM EDT Armaan Hebert MD POINT OF CARE TEST ORDERABLE S Glucose, random (10/03/2013 8:30 AM EDT) athologist Signature Glucose Lvl 84 60 - 199 CERNER mg/dL [facility] Comment: Diabetes: >=200 mg/dL plus symp toms Specimen Anatomical Collection Method Collection Time Receive d Time (Source) Location / / Volume Laterality Blood specimen 10/03/2013 8:30 AM 014 8:41 (specimen) EDT AM EDT Resulting Agency Comment Spec In Lab Armaan Hebert MD CHEMISTRY ORDERABLES Performing Organization Address City/[facility] [place] [address] [facility] Growth hormone (10/03/2013 8:30 AM EDT) athologist Signature Growth Hormone 0.7 ng/mL [facility] Comment: Expected results (Basal/Unstimulated): < 10 ng/mL (all ages) GH concentration in response to stimulat ion should rise by: ??>10 ng/mL (Insulin) ??>7.5 ng/mL (Arginine) GH secretion is episodic and pulsatile; transient levels up to 40 ng/mL have been observed in healthy individuals. References: Stimulation test information from: Lynne MCKENZIE, Faina RAMOS, Zohra PERSON, eds. Lisha Textbook of Clinical Chemistry and Molec ular Diagnostics. 4th ed. [place]:Gloria Silva,2006:2272. Basal/Unstimulated Reference Interval fr om: IDS-iSYS Human Growth Hormone (hGH)[id number], 2011-04-20 Growth H. Time 20 min. prior CERNER [facility] Specimen Anatomical Collection Method Collection Time Receive d Time (Source) Location / / Volume Laterality Blood specimen 10/03/2013 8:30 AM 014 8:41 (specimen) EDT AM EDT Resulting Agency Comment Spec In Lab Armaan Hebert MD CHEMISTRY ORDERABLES Performing Organization Address [facility] Phon e Number [address] CERNER [email or web address] Cortisol (10/03/2013 8:30 AM EDT) P athologist Signature Cortisol 4.9 mcg/dL [email or web address] Comment: Reference ranges: ??AM (7-10am): ??6.2-19.4 mcg/dL ??PM (4-8pm): ??2.3-12.3 mcg/dL Specimen Anatomical Collection Method Collection Time Receive d Time (Source) Location / / Volume Laterality Blood specimen 10/03/2013 8:30 AM 014 8:41 (specimen) EDT AM EDT Resulting Agency Comment Spec In Lab Armaan Hebert MD CHEMISTRY ORDERABLES Performing Organization Address [facility] Phon e Number [address] CERNER [email or web address] documented in this encounter Visit Diagnoses Diagnosis Short stature - Primary documented in this encounter Administered Medications Inactive Administered Medications - up to 3 most recent administrations Medication Order MAR Action Action Date Dose Rate Site arginine (R-GENE 10) injection Given 10/03/2013 9:20 AM EDT 28.5 g 28.5 g 28.5 g (500 mg/kg/dose ? 57 kg), Intravenous, ONCE, 1 dose, On Roxi 10/03/13 at 0845 insulin regular human (HUMULIN;NOVOLIN) VIAL Given 8:30 AM EDT 7 Units injection 7 Units 7 Units (0.123 Units/kg), Injection, ONCE, 1 dose, On Roxi 10/03/13 at 0845, Routine documented in this encounter Care Teams Textile Clothing And Footwear Mechanic Relationship Specialty Start Date End Date Jan Hua MD PCP - General 04/13/10 [facility] [address] documented as of this encounter
--- OUTSIDE RECORDS SUMMARY | 2021-12-24 01:33 | XMS_ITS | Encounter Summary ---
:2000 Author Organization [facility] [place] [address] Care Team Providers Name Role Phone Jan Hua MD Primary Care Provider Reason for Visit Reason Comments Other Encounter Details Date Type Department Care Team Description 10/08/2013 Telephone Pediatric Endocrinology at Inessa Duque [facility] [place] [place] [address] Social History Tobacco Use Types Packs/Day Years Used Date Never Smoker Smokeless Tobacco: Never Used Comments: mom smokes outside Alcohol Use Standard Drinks/Week Comments Not Asked 0 (1 standard drink = 0.6 oz pure alcoho l) Sex Assigned at Date Recorded Not on file documented as of this encounter Miscellaneous Notes Telephone Encounter - Inessa Duque RN - 10/08/2013 2:47 PM EDT Father notified of the lab results per Hugh Paulino. Mailed home copy of lab work as per father's request. No further endocrine followup indicated at this time Telephone Encounter - Inessa Duque RN - 10/08/2013 2:47 PM EDT Message copied by INESSA DUQUE on MonOctober 08, 2013 2:47 PM ------ Message from: HUGH PAULINO Created: MonOctober 08, 2013 12:54 PM Provocative testing rules out adult growth hormone deficiency. Normal cortisol response. documented in this encounter Plan of Treatment Not on filedocumented as of this encounter Visit Diagnoses Not on filedocumented in this encounter Care Teams Ore Buyer Relationship Specialty Start Date End Date Jan Hua MD PCP - General 04/13/10 [place] [address] documented as of this encounter
--- OUTSIDE RECORDS SUMMARY | 2021-12-24 01:33 | XMS_ITS | Encounter Summary ---
:2000 Author Organization [facility] [place] [address] Care Team Providers Name Role Phone Jan Hua MD Primary Care Provider Reason for Visit Reason Comments Other Encounter Details Date Type Department Care Team Description 07/09/2013 Telephone Pediatric Endocrinology at Daniel Yu MD [facility] Adilson roldna [place] [address] [place] [address] [phone] (Wo rk) Social History Tobacco Use Types Packs/Day Years Used Date Never Smoker Smokeless Tobacco: Never Used Comments: mom smokes outside Alcohol Use Standard Drinks/Week Comments Not Asked 0 (1 standard drink = 0.6 oz pure alcoho l) Sex Assigned at Date Recorded Not on file documented as of this encounter Miscellaneous Notes Telephone Encounter - Daniel Kellogg MD - 07/09/2013 9:38 AM EST Message copied by DANIEL KELLOGG on MonJul 09, 2013 9:38 AM ------ Message from: INESSA DESOUZA Created: MonJul 08, 2013 1:25 PM Contact: father,Esau Parents are and Dad would like to talk with you about pros and cons of testing for adult deficiency Cell Called home and left message. 07/09, 9:40 AM+ Spoke to father. He now has temporary custody. Explained the recommendation to have adult GH testing. He will call to schedule. documented in this encounter Plan of Treatment Not on filedocumented as of this encounter Visit Diagnoses Not on filedocumented in this encounter Care Teams Set Up Mechanic Stamping Machines Relationship Specialty Start Date End Date Jan Hau MD PCP - General 04/13/[address] [place], [place] [address] [address] documented as of this encounter
--- OUTSIDE RECORDS SUMMARY | 2021-12-24 01:33 | XMS_ITS | Encounter Summary ---
:2000 [place] [address] Care Team Providers Name Role Phone Jan Hua MD Primary Care Provider Reason for Visit Reason Comments Growth Hormone Deficiency Encounter Details Date Type Department Care Team Description 04/22/2011 Office Visit Pediatric Endocrinology Daniel Kellogg hormone at [facility] [place] Marissa deficiency (Primary [facility]) [facility] [place] [address] PEDIATRIC [phone] ENDOCRINOLOGY [place], [place] [address] Social History Tobacco Use Types Packs/Day Years Used Date Never Smoker Comments: mom smokes outside Alcohol Use Standard Drinks/Week Comments Not Asked 0 (1 standard drink = 0.6 oz pure alcoho l) Sex Assigned at Date Recorded Not on file documented as of this encounter Last Filed Vital Signs Vital Sign Reading Time Taken Comments Blood Pressure 114/60 04/22/2011 11:21 AM EST Pulse 75 04/22/2011 11:21 AM EST Temperature - - Respiratory Rate 20 04/22/2011 11:21 AM EST Oxygen Saturation - - Inhaled Oxygen Concentration - - Weight 47.5 kg (104 lb 12.8 oz) 04/22/2011 11:21 AM EST Height 153.5 cm (5' 0.43) 04/22/2011 11:21 AM EST Body Mass Index 20.18 04/22/2011 11:21 AM EST Body Mass Index Percentile 76.45 % 04/22/2011 11:21 AM EST Growth Chart: CDC (Girls, 2-20 Years) documented in this encounter Progress Notes aDniel Kellogg MD - 04/24/2011 3:32 PM EST Subjective: Patient ID: Staci Denton is a 10 y.o. female. SAMARA Small is here with her mother for followup of isolated growth hormone deficiency. She was diagnosed at 3 years of age and the family moved to our area in January of 2010. Overall she's done well in the last interval. Her height has increased. The report missing only 2 injections. She is still refusing to the injections herself. Her energy level is good. She has no constipation or cold intolerance. Menarche occurred March 28. Father had contacted our office by telephone in the last interval. He is concerned that her brother has Fragile X syndrome and wondered if she should be tested. I recommended that the diagnosis be confirmed and her brother first as she has not showing any specific issues to make me suspect the diagnosis. Unfortunately her brother has a very difficult time with medical appointments and it has been difficult to obtain the confirmatory samples. Review of Systems Constitutional: Negative. HENT: Negative. [...] Growth hormone deficiency - DANIEL KELLOGG MD 04/24/11 03:27 PM Signed Staci has gained an additional 3.1 cm over the past 4 months and has now exceeded 5 feet in height. She recently had menarche and so we expect her growth velocity will soon taper. Her growth factor levels, which were checked in November, were satisfactory and so we will continue with the same dose of growth hormone. documented in this encounter Miscellaneous Notes Communication Body - Daniel Kellogg MD - 04/24/2011 3:33 PM EST Subjective: Patient ID: Staci Denton is a 10 y.o. female. 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 She was diagnosed at 3 years of age and the family moved to our area in January of 2010. Overall she's done well in the last interval. Her height has increased. The report missing only 2 injections. She is still refusing to the injections herself. Her energy level is good. She has no constipation or cold intolerance. Menarche occurred March 28. Father had contacted our office by telephone in the last interval. He is concerned that her brother has Fragile X syndrome and wondered if she should be tested. I recommended that the diagnosis be confirmed and her brother first as she has not showing any specific issues to make me suspect the diagnosis. Unfortunately her brother has a very difficult time with medical appointments and it has been difficult to obtain the confirmatory samples. Review of Systems Constitutional: Negative. HENT: Negative. [...] BP 114/60 Pulse 75 Resp 20 Ht 153.5 cm (5' 0.43) Wt 47.537 kg (104 lb 12.8 oz) BMI 20.18 kg/m2 LMP 04/22/2011 Assessment and Plan: Growth hormone deficiency - DANIEL KELLOGG MD 04/24/11 03:27 PM Signed Staci has gained an additional 3.1 cm over the past 4 months and has now exceeded 5 feet in height. She recently had menarche and so we expect her growth velocity will soon taper. Her growth factor levels, which were checked in November, were satisfactory and so we will continue with the same dose of growth hormone. Assessment & Plan Note - Daniel Kellogg MD - 04/24/2011 3:27 PM EST Associated Problem(s): Growth hormone deficiency Staci has gained an additional 3.1 cm over the past 4 months and has now exceeded 5 feet in height. She recently had menarche and so we expect her growth velocity will soon taper. Her growth factor levels, which were checked in November, were satisfactory and so we will continue with the same dose of growth hormone. 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
[2021-12-26 11:26] LABS: HIV-1/2 Ag & Ab Screen Negative (Negative)
[2021-12-26 15:47] LABS: Syphilis IgG w/Reflex Nonreactive (Nonreactive)
[2021-12-27 10:01] LABS: Hepatitis C Ab w Rflx HCV PCR Negative (Negative)
== END 2021-12-24 01:32 | disposition home or self-care (01) ==
LOC: LBO 01:31
PROVIDERS: PCP Nurse Practitioner Family; Visit Provider Nurse Practitioner Women's Health
DX: Z11.3 Encounter for screening for infections with a predominantly sexual mode of transmission (principal); Z11.4 Encounter for screening for human immunodeficiency virus [HIV]; Z11.59 Encounter for screening for other viral diseases
CPT/HCPCS: 36415; 86803; 87389; 86780